=== PATIENT | male | born 1925 | race Caucasian/White ===

== ENCOUNTER → 2016-10-02 | Outpatient (CLI) | payer MEDICARE ==
--- NOTE | 2016-10-02 12:27 | Diagnostic Imaging Report ---
PROCEDURE: CT abdomen and pelvis without contrast. TECHNIQUE: Multiple contiguous axial images were obtained through the abdomen and pelvis without the use of intravenous contrast. INDICATION: Right lower quadrant pain. History of hernia repair. Patient also provides history of prior appendectomy and cholecystectomy. COMPARISON: 05/01/2016. FINDINGS: The lung bases demonstrate minimal atelectasis. The liver demonstrates a 1.6 cm hypodense lesion in the inferior aspect of the right hepatic lobe. This is not significantly changed from 05/01/2016 exam and possibly represents a hepatic cyst. Cholecystectomy clips are seen. There is no splenomegaly. The pancreas and the adrenals appear unremarkable. The kidneys demonstrate no stones and no hydronephrosis. There is posteriorly exophytic mass in the left kidney measuring 2.1 cm, could be a solid mass. When evaluated with ultrasound, however, on 05/09/2016, no correlating abnormality was identified. CT evaluation is somewhat limited without intravenous contrast on this exam. There is no significant interval change identified, however. No bowel obstruction. The abdominal aorta is normal in caliber. No para-aortic significantly enlarged lymph node is seen. There is evidence of bilateral prior inguinal hernia repair with mesh seen on the right side that has radiopaque markers. Surgical clips are seen on the left. There is no significant free fluid or fluid collection in the abdomen or pelvis identified. Nonspecific sclerotic foci less than a centimeter in size in the right iliac bone are again noted presumably related to bone islands. IMPRESSION: Stable exophytic-appearing lesion measuring 2.2 cm from the posterior aspect of the left kidney, without a correlating mass identified on ultrasound from 05/09/2016 is perhaps a normal variation. Evaluation by CT, however, is somewhat limited due to lack of intravenous contrast. An MRI without contrast could help if the patient cannot get contrast due to renal function. If not obtained, another followup CT scan in 6 months would be recommended to further observe this abnormality. Dictated by: Dictated on workstation # [id number]
== END ==
LOC: RAD 10:32
PROVIDERS: ATTEND Nurse Practitioner Family
DX: R10.31 Right lower quadrant pain (principal)
CPT/HCPCS: 74176

== ENCOUNTER → 2017-05-02 | Outpatient (CLI) | payer MEDICARE ==
--- NOTE | 2017-05-02 14:23 | Diagnostic Imaging Report ---
PROCEDURE: CT abdomen and pelvis without contrast. TECHNIQUE: Multiple contiguous axial images were obtained through the abdomen and pelvis without the use of intravenous contrast. INDICATION: Renal mass. COMPARISON: 10/02/16 and 05/01/16. FINDINGS: Again seen is a 2.1 cm hypodense lesion partially exophytic from the posterior margin of the left kidney. Exact etiology is uncertain but this lesion appears stable from the prior exams. Its density is within the soft tissue range although could be related to a complicated cyst. The kidneys demonstrate no hydronephrosis. There are no urinary tract stones. The lung bases demonstrate no significant abnormality. The liver demonstrates a 1.5 cm cyst in the right hepatic lobe. The spleen, the adrenals, and the pancreas appear unremarkable. Cholecystectomy clips are seen. The abdominal aorta is normal in caliber. No para-aortic significantly enlarged lymph node is seen. There is no bowel obstruction. There is diverticulosis. No diverticulitis. The osseous structures demonstrate bridging syndesmophytes in the lumbar spine and SI joint fusion bilaterally. IMPRESSION: Indeterminate hypodense lesion measuring 2.1 cm exophytic from the posterior portion of the left kidney, without significant change from 2016. This could be a benign lesion or potentially a low-grade indolent malignancy. Dictated by: Dictated on workstation # [id number]
== END ==
LOC: RAD 12:56
PROVIDERS: ATTEND Nurse Practitioner Family
DX: N28.9 Disorder of kidney and ureter, unspecified (principal)
CPT/HCPCS: 74176

== ENCOUNTER → 2017-06-24 | Outpatient (CLI) | payer MEDICARE ==
--- NOTE | 2017-06-24 15:38 | Diagnostic Imaging Report ---
Three views of the cervical spine. INDICATION: Neck pain. FINDINGS: There is satisfactory alignment of the cervical spine. The vertebral body heights are preserved. There is prominent disc height loss at the C4-C5, C5-C6 and C6-C7 levels with anterior osteophytes. Mild posterior osteophytes are also noted at the C4-C5 level. The alignment of the lateral masses of C1 and C2 appears satisfactory. IMPRESSION: Prominent degenerative disc changes around the [id number] cervical spine. Dictated by: Dictated on workstation # [id number]
== END ==
LOC: RAD 15:04
PROVIDERS: ATTEND Nurse Practitioner Family
DX: M50.321 Other cervical disc degeneration at C4-C5 level (principal)
CPT/HCPCS: 72040

== ENCOUNTER → 2017-07-10 | Outpatient (CLI) | payer MEDICARE ==
--- NOTE | 2017-07-10 16:02 | Diagnostic Imaging Report ---
CLINICAL INDICATION: Patient fell three weeks ago and has neck pain. Patient hit back of his head. EXAM: MRI of the cervical spine performed without IV contrast. Sequences include sagittal T2, sagittal T1, sagittal T2 fat-sat, axial T2. COMPARISON: X-ray of the cervical spine dated 06/24/2017. FINDINGS: There is no evidence of acute cervical spine fracture or dislocation. There is no significantly abnormal signal involving the cervical vertebral bodies. Suspected small intraosseous hemangioma within the upper aspect of the C4 vertebral body. There are hypertrophic spurs seen throughout the cervical spine and facet arthropathy. Paraspinal soft tissue shows no significant abnormality. Limited visualization of the posterior fossa shows no significant abnormality. The cervical spinal cord has normal anatomic appearance with no abnormal cord or signal changes seen. C1-C2: There are small degenerative spurs involving the atlantoodontoid interval anteriorly. C2-C3: There is moderate left facet arthropathy and mild right facet arthropathy. There is mild ligamentum flavum buckling. There is mild central canal narrowing. There is no significant neural foramen narrowing. C3-C4: There is mild diffuse disc bulge, ligamentum flavum buckling, and moderate left facet arthropathy/hypertrophy and moderate right facet arthropathy. There is severe central canal narrowing. There is severe bilateral neural foramen narrowing. C4-C5: There is a diffuse disc bulge, moderate loss of intervertebral disc height, and small disc spurs extending into the subarticular regions bilaterally. There is moderate bilateral facet arthropathy and ligamentum flavum buckling. There is [id number] central canal narrowing. There is severe bilateral neural foramen narrowing. C5-C6: There is a diffuse disc bulge and moderate loss of intervertebral disc height and disc spurs extending posteriorly and into the foraminal regions bilaterally. There is ligamentum flavum buckling and moderate bilateral facet arthropathy. There is severe bilateral neural foramen narrowing. There is severe central canal narrowing. C6-C7: There is a diffuse disc bulge with small disc herniation posteriorly. There is ligamentum flavum buckling, mild bilateral facet arthropathy, and bilateral uncinate spurs. There is severe bilateral neural foramen narrowing and moderate central canal narrowing. C7-T1: There is bony fusion of the facets/posterior elements. Otherwise, this level is unremarkable. 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 This is described in detail above. Dictated by: Dictated on workstation # [id number]
== END ==
LOC: RAD 14:30
PROVIDERS: ATTEND Family Medicine
DX: M50.321 Other cervical disc degeneration at C4-C5 level (principal); M48.02 Spinal stenosis, cervical region
CPT/HCPCS: 72141